=== PATIENT | female | born 1990 | race Hispanic/Latino ===

== ENCOUNTER 2019-06-15 19:30 | Inpatient (IN) | payer MEDICAID, OTHER, SELFPAY ==
[~2019-06-15 19:30] MED LIST: Carboprost 250 MCG/ML AMP IM PRN; Diphenoxylate HCl/Atropine Tablet PO PRN; HYDROcodone/Acetaminophen 5/325 mg Tablet PO PRN; Ibuprofen 800 MG TAB PO PRN; Lidocaine 1% (PF) 30 ML VIAL SC PRN; Methylergonovine 0.2 MG/ML VIAL IM PRN; Misoprostol 200 MCG TAB PR PRN; NS / Oxytocin 40 units/1000ml 1,000 ML IV PRN
[2019-06-15] MEDS ORDERED: NS / Oxytocin 40 units/1000ml 1,000 ML IV PRN (21:56)
[2019-06-15] MEDS ORDERED: Promethazine HCl 25 MG/ML VIAL IM PRN (21:56)
[2019-06-15] MEDS ORDERED: Lidocaine 1% (PF) 30 ML VIAL SC PRN (21:56)
[2019-06-15] MEDS ORDERED: Ondansetron PF 4 MG/2 ML Vial IVP PRN (21:56)
[2019-06-15] MEDS ORDERED: Butorphanol Tartrate 1 MG/ML VIAL SLOW IVP PRN (21:56)
[2019-06-15] MEDS ORDERED: hydrALAZINE 20 MG/ML VIAL SLOW IVP PRN (21:56)
[2019-06-15] MEDS: Lactated Ringer's 1,000 ML IV SCH (22:00)
[2019-06-15 22:11] VITALS: BMI 45.6
[2019-06-15] MEDS: Misoprostol 100 MCG TAB PO SCH (23:01)
[2019-06-15 23:26] LABS: Hemoglobin 11.2 g/dL (12.0-16.0); Mean Corpuscular HGB CONC 33.3 g/dL (32.0-36.0); Mean Corpuscular Hemoglobin 27.1 pg (27.0-31.0); Mean Corpuscular Volume 81.3 fL (78.0-98.0); Mean Platelet Volume 8.3 fL (7.4-10.4); Platelet Count 329 thou/uL (130-400); RBC Distribution Width 14.5 % (11.5-14.5); Red Blood Cell (RBC) Count 4.15 mill/uL (4.20-5.40); White Blood Cell (WBC) Count 7.4 thou/uL (4.8-10.8)
[2019-06-16 00:52] LABS: Hep B Surf Ag Non-Reactive S/CO (NonReactive); Syphilis Antibody Nonreactive (Nonreactive); Syphilis Antibody Index 0.04 S/CO (<1.00 Non-Reactive)
[2019-06-16] MEDS ORDERED: Fentanyl 100 MCG/2 ML VIAL ONE (04:16)
[2019-06-16] MEDS ORDERED: Lidocaine 1.5%/Epinephrine 1:200,000 5 ML AMPUL IJ ONE (04:17)
[2019-06-16] MEDS ORDERED: NS w/ Oxytocin 10 units 500 ML ONE (06:27)
[2019-06-16] MEDS ORDERED: NS w/ Oxytocin 10 units 500 ML IVPB SCH (06:30)
[2019-06-16] MEDS: Lactated Ringer's 1,000 ML IV SCH ×2 (06:44→11:20)
[2019-06-16] MEDS ORDERED: FLU VACC QS2019-20(6MOS UP)/PF 60 MCG/0.5 ML SYRINGE IM ONE (09:00)
[2019-06-16] MEDS ORDERED: Lidocaine 1% (PF) 30 ML VIAL ONE (10:44)
[2019-06-16] MEDS ORDERED: NS / Oxytocin 40 units/1000ml 1,000 ML ONE (10:44)
[2019-06-16] MEDS ORDERED: Fentanyl 4 mcg/Bup 0.1% Cadd 100 ML ONE (10:55)
[2019-06-16] MEDS ORDERED: Ondansetron PF 4 MG/2 ML Vial IVP PRN ×2 (12:49→16:20)
[2019-06-16] MEDS ORDERED: diphenhydrAMINE 50 MG/ML VIAL IVP PRN (12:49)
[2019-06-16] MEDS ORDERED: ePHEDrine/0.9% NaCl/PF SYRINGE 50 mg/10 ml SLOW IVP PRN (12:49)
[2019-06-16] MEDS ORDERED: Naloxone HCl 0.4 mg/ml Vial IVP PRN ×2 (12:49)
[2019-06-16] MEDS ORDERED: Promethazine HCl 25 MG/ML VIAL IM PRN ×2 (12:49→16:20)
[2019-06-16] MEDS ORDERED: Lactated Ringer's 500 ML IV PRN (12:49)
[2019-06-16] MEDS ORDERED: Acetaminophen 325 MG TAB PO PRN (12:49)
[2019-06-16] MEDS ORDERED: Fentanyl 4 mcg/Bupivacaine 0.1% Cassette 100 ML EPIDURAL SCH (13:00)
[2019-06-16] MEDS ORDERED: Communication Order-Pharmacy FS SCH (13:00)
[2019-06-16] MEDS: Misoprostol 100 MCG TAB PO SCH (16:17)
[2019-06-16] MEDS ORDERED: hydrALAZINE 20 MG/ML VIAL SLOW IVP PRN (16:20)
[2019-06-16] MEDS ORDERED: Lanolin Ointment 7 GM TUBE TOP PRN (16:20)
[2019-06-16] MEDS ORDERED: HYDROcodone/Acetaminophen 5/325 mg Tablet PO PRN (16:20)
[2019-06-16] MEDS ORDERED: diphenhydrAMINE 25 MG CAP PO PRN (16:20)
[2019-06-16] MEDS ORDERED: NS / Oxytocin 40 units/1000ml 1,000 ML IV SCH (16:20)
[2019-06-16] MEDS ORDERED: Benzocaine-Menthol 82.5 ML CAN TOP PRN (16:20)
[2019-06-16] MEDS ORDERED: Bisacodyl 10 MG SUPP PR PRN (16:20)
[2019-06-16] MEDS ORDERED: Milk Of Magnesia 30 ML UDCUP PO PRN (16:20)
[2019-06-16] MEDS: Ibuprofen 800 MG TAB PO SCH (17:58)
[2019-06-16] MEDS: Ferrous Sulfate 325 MG TAB PO SCH (20:57)
[2019-06-17] MEDS: Docusate Calcium (SURFAK) 240 MG CAP PO SCH ×3 (01:31→19:53)
[2019-06-17] MEDS: Ibuprofen 800 MG TAB PO SCH ×3 (01:31→16:57)
[2019-06-17 07:07] LABS: Hemoglobin 10.6 g/dL (12.0-16.0); Mean Corpuscular HGB CONC 32.3 g/dL (32.0-36.0); Mean Corpuscular Hemoglobin 26.4 pg (27.0-31.0); Mean Corpuscular Volume 81.6 fL (78.0-98.0); Mean Platelet Volume 8.3 fL (7.4-10.4); Platelet Count 288 thou/uL (130-400); RBC Distribution Width 14.7 % (11.5-14.5); Red Blood Cell (RBC) Count 4.04 mill/uL (4.20-5.40); White Blood Cell (WBC) Count 9.4 thou/uL (4.8-10.8)
[2019-06-17] MEDS: Prenatal Vitamin 1 TAB PO SCH (08:59)
[2019-06-17] MEDS: HYDROcodone/Acetaminophen 5/325 mg Tablet PO PRN ×2 (09:00→19:50)
[2019-06-17] MEDS ORDERED: Adacel (T-DAP) 0.5 ML SYRINGE IM ONE (09:00)
[2019-06-17] MEDS: Ferrous Sulfate 325 MG TAB PO SCH ×2 (09:02→17:23)
[2019-06-18] MEDS: Ibuprofen 800 MG TAB PO SCH ×2 (00:16→06:17)
[2019-06-18 08:05] VITALS: BP 102/58; TEMP 98.2
[2019-06-18] MEDS: Ferrous Sulfate 325 MG TAB PO SCH (09:00)
[2019-06-18] MEDS: Prenatal Vitamin 1 TAB PO SCH (09:10)
[2019-06-18] MEDS: Docusate Calcium (SURFAK) 240 MG CAP PO SCH (09:10)
== END 2019-06-18 11:15 | disposition home or self-care (01) | DRG 807 ==
LOC: L&D 21:35 → 3SW 06-16 17:11
PROVIDERS: ADMIT Family Medicine; ATTEND Family Medicine
PROC: 10E0XZZ Delivery of Products of Conception, External Approach (ICD-10-PCS; principal; 2019-06-15)
PROC: 10907ZC Drainage of Amniotic Fluid, Therapeutic from Products of Conception, Via Natural or Artificial Opening (ICD-10-PCS; 2019-06-15)
PROC: 3E0P7VZ Introduction of Hormone into Female Reproductive, Via Natural or Artificial Opening (ICD-10-PCS; 2019-06-15)
PROC: 3E033VJ Introduction of Other Hormone into Peripheral Vein, Percutaneous Approach (ICD-10-PCS; 2019-06-15)
DX: O99.214 Obesity complicating childbirth (principal); E66.9 Obesity, unspecified; Z37.0 Single live birth; Z3A.39 39 weeks gestation of pregnancy
CPT/HCPCS: 36415; 51702; 85027; 86780; 86850; 86900; 86901; 87340; J2001; J2590; J3010; J3490

== ENCOUNTER 2024-01-09 05:31 | Emergency (ER) | payer OTHER, SELFPAY ==
[2024-01-09 06:13] LABS: #Basophils 0.04 10x3/uL (0.0-0.2); %Basophils 0.5 % (0.0-1.0); %Eosinophils 1.1 % (0.0-10.0); %Lymphocytes 40.9 % (21.0-51.0); %Monocytes 8.4 % (0.0-10.0); %Neutrophils 48.8 % (42.0-75.0); Hematocrit 41.7 % (36.0-47.0); Hemoglobin 14.4 g/dL (12.0-16.0); Mean Corpuscular HGB CONC 34.5 g/dL (32.0-36.0); Mean Corpuscular Hemoglobin 31.7 pg (27.0-31.0); Mean Corpuscular Volume 91.9 fL (78.0-98.0); Mean Platelet Volume 10.4 fL (7.4-10.4); Platelet Count 297 10x3/uL (130-400); RBC Distribution Width 12.4 % (11.5-14.5); Red Blood Cell (RBC) Count 4.54 mill/uL (4.20-5.40)
[2024-01-09 06:19] LABS: Bacteria/HPF None Seen HPF (None Seen); Bilirubin Negative (Negative); Blood, Urine 3+ (Negative); CAUTI Indications for Culture Pelvic or flank pain; Clarity Turbid (Clear); Glucose, Urine (Dipstick) Normal (Negative); Ketone, Urine 10 mg/dL (Negative); Leukocyte 25 Leu/uL (Negative); Nitrite Negative (Negative); Protein, Urine (Dipstick) 30 mg/dL (Neg-Trace); RBC/HPF Greater than 50 HPF (0-3); Specific Gravity, Urine 1.033 (1.002-1.036); Squamous Epithelial 0-3 HPF (0-3); Urobilinogen Normal mg/dL (Less than 2); WBC/HPF 0-3 HPF (0-3)
[2024-01-09 06:24] LABS: Urine Culture Reflex No No
[2024-01-09 06:26] LABS: BHCG - Serum Negative (NEGATIVE); Pregs Control Background? CLEAR/WHITE (CLR/WHITE); Pregs Control Bar Appear? YES (CONTROL BAR)
[2024-01-09 06:36] LABS: ALT (SGPT) 21 U/L (8-55); AST (SGOT) 21 U/L (5-34); Albumin 3.8 g/dL (3.5-5.0); Alkaline Phosphatase 84 U/L (40-110); Anion Gap 13 mmol/L (10-20); BUN (Urea Nitrogen) 12 mg/dL (7.0-18.7); Bilirubin, Total 0.6 mg/dL (0.2-1.2); Calc. Creatinine Clearance 0 mL/min (70-130); Calcium 9.3 mg/dL (7.8-10.44); Carbon Dioxide 23 mmol/L (22-29); Chloride 107 mmol/L (98-107); Estimated GFR 107; Globulin 3.3 g/dL (2.4-3.5); Glucose 99 mg/dL (70-105); Potassium 3.9 mmol/L (3.5-5.1); Protein, Total 7.1 g/dL (6.0-8.3); Sodium 139 mmol/L (136-145)
[2024-01-09] MEDS ORDERED: Ketorolac Tromethamine 30 MG (1 mL) VIAL ONE (06:41)
[2024-01-09] MEDS ORDERED: Ondansetron PF 4 MG/2 ML Vial ONE (06:41)
== END 2024-01-09 07:56 | disposition home or self-care (01) ==
LOC: ERS 05:31
DX: N39.0 Urinary tract infection, site not specified (principal); R10.9 Unspecified abdominal pain; Z55.6 Problems related to health literacy
CPT/HCPCS: 36415; 74176; 80053; 81001; 84703; 85025; 87086; 93005; 96361; 96374; 96375; J1885; J2405